=== PATIENT | female | born 1980 | race Caucasian/White ===

== ENCOUNTER 2017-11-11 13:38 | Emergency (ER) | payer OTHER ==
[~2017-11-11] VITALS: Ht 152.4 cm; Wt 103.0 kg
[~2017-11-11 13:38] MED LIST: CALA120T PO; DEPO40IN IM; SERT50 PO
[2017-11-11 13:40] VITALS: BP 147/74; PULSE 82; RESP 18; TEMP 98.7; O2SAT 98
[2017-11-11] MEDS ORDERED: KETOROLAC TROMETHAMINE 30 MG/ML (IVP) VIAL IV PUSH ONE (14:15)
[2017-11-11] MEDS ORDERED: IBUP1TAB7 PO (14:18)
[2017-11-11] MEDS ORDERED: LORA1TAB12 PO (14:18)
[2017-11-11] MEDS ORDERED: SERT-129 PO (14:18)
[2017-11-11] MEDS ORDERED: TRAM50TA PO (14:18)
[2017-11-11] MEDS ORDERED: AMLO10TA2 PO (14:18)
[2017-11-11] MEDS ORDERED: NORT0.5T2 PO (14:18)
--- NOTE | 2017-11-11 14:42 | PD ---
HPI Chief Complaint: Epidemiology Internship Problem/Complaint Time Seen by Provider: 13:58 Travel History International Travel<30 days: No Contact w/Intl Traveler<30days: No Traveled to known affect area: No History of Present Illness HPI This is a 36-year-old female who has a history of polycystic ovarian syndrome who presents to the emergency department with 3 days of increasing right pelvic pain, constant, sharp, worse with walking, improved with rest. She says she has had pain like this for months and has had MRI, CT and ultrasound but she says this pain is much worse and it never used to bother her when she was walking. She has an [facility] appointment scheduled but not until December. She is on her menstrual cycle and has had a normal amount of flow. She denies any fevers or chills and denies any diarrhea. PFSH Past Medical History Depression: Yes Cancer: No Diabetes: No Diminished Hearing: No Hiatal Hernia: No Hypertension: Yes Migraines: Yes Thyroid Disease: No Influenza Vaccination: Yes ?: Not LMP: 3 DAYS AGO Past Surgical History Abdominal Surgery: No Cardiac Surgery: No Ear Surgery: No Eye Surgery: No Genitourinary Surgery: No Gynecologic Surgery: No Oral Surgery: No Pacemaker: No Thoracic Surgery: No Other Surgery: Yes Social History Alcohol Use: No Tobacco Use: No Allergies-Medications (Allergen,Severity, Reaction): Coded Allergies: erythromycin base (Unverified Adverse Reaction, Intermediate, NAUSEA/ DIARRHEA, 11/11/17) aspirin (Unverified Adverse Reaction, Mild, UPSET STOMACH, 11/11/17) Reported Meds & Prescriptions Reported Meds & Active Scripts Active Reported Amlodipine (Amlodipine Besylate) 10 Mg Tab 10 Mg PO DAILY Lorazepam 1 Mg Tab 1 Mg PO HS PRN Sertraline (Sertraline HCl) 100 Mg Tab 150 Mg PO HS Ibuprofen 800 Mg Tab 800 Mg PO NOON PRN Tramadol (Tramadol HCl) 50 Mg Tab 50 Mg PO BID PRN Nortrel 0.5/35 (Norethindrone-Ethinyl Estradiol) 0.5-35 Mg-Mcg Tab 1 Tab PO DAILY Review of Systems Except as stated in HPI: all other systems reviewed are Neg Physical Exam Narrative GENERAL:Well appearing, no acute distress, comfortable appearing. SKIN: Focused skin assessment warm and dry. HEAD: Atraumatic. Normocephalic. EYES: Pupils equal and round. No injection or drainage. ENT: Moist mucous membranes NECK: Trachea midline. CARDIOVASCULAR: Regular rate and rhythm. No murmur appreciated. RESPIRATORY: Clear to auscultation. Breath sounds equal bilaterally. GASTROINTESTINAL: Abdomen soft, tender to palpation in the lower right pelvis with no rebound or guarding. : Tender to palpation immediately over the right ovary. MUSCULOSKELETAL: No obvious deformities. NEUROLOGICAL: Awake and alert. No obvious cranial nerve deficits. Moving all extremities. PSYCHIATRIC: Appropriate mood and affect; insight and judgment normal. Data Data Last Documented VS Vital Signs Date Time Temp Pulse Resp B/P (MAP) Pulse Ox O2 Delivery O2 Flow Rate FiO2 11/11/17 16:53 72 20 109/89 (96) 98 Room Air 11/11/17 13:40 98.7 Orders Orders Complete Blood Count With Diff (11/11/17 14:15) Comprehensive Metabolic Panel (11/11/17 14:15) ^ Insert Iv (11/11/17 14:15) Ed Urine Pregnancytest Poc (11/11/17 14:15) Ketorolac Inj (Toradol Inj) (11/11/17 14:15) Us Pelvis Comp Epidemiology Internship/Non-Preg (11/11/17 ) Labs Laboratory Tests Test 11/11/17 14:40 White Blood Count 5.7 TH/MM3 Red Blood Count 4.18 MIL/MM3 Hemoglobin 12.0 GM/DL Hematocrit 36.2 % Mean Corpuscular Volume 86.5 FL Mean Corpuscular Hemoglobin 28.6 PG Mean Corpuscular Hemoglobin Concent 33.1 % Red Cell Distribution Width 11.8 % Platelet Count 359 TH/MM3 Mean Platelet Volume 6.6 FL Neutrophils (%) (Auto) 57.6 % Lymphocytes (%) (Auto) 33.1 % Monocytes (%) (Auto) 5.8 % Eosinophils (%) (Auto) 2.8 % Basophils (%) (Auto) 0.7 % Neutrophils # (Auto) 3.3 TH/MM3 Lymphocytes # (Auto) 1.9 TH/MM3 Monocytes # (Auto) 0.3 TH/MM3 Eosinophils # (Auto) 0.2 TH/MM3 Basophils # (Auto) 0.0 TH/MM3 CBC Comment DIFF FINAL Differential Comment Blood Urea Nitrogen 10 MG/DL Creatinine 0.49 MG/DL Random Glucose 84 MG/DL Total Protein 7.1 GM/DL Albumin 3.7 GM/DL Calcium Level 8.3 MG/DL Alkaline Phosphatase 46 U/L Aspartate Amino Transf (AST/SGOT) 14 U/L Alanine Aminotransferase (ALT/SGPT) 28 U/L Total Bilirubin 0.2 MG/DL Sodium Level 137 MEQ/L Potassium Level 3.8 MEQ/L Chloride Level 103 MEQ/L Carbon Dioxide Level 27.6 MEQ/L Anion Gap 6 MEQ/L Estimat Glomerular Filtration Rate 143 ML/MIN MDM Medical Decision Making Medical Screen Exam Complete: Yes Emergency Medical Condition: Yes Interpretation(s) Afebrile, no tachycardia, mild hypertension No leukocytosis Electrolytes are reassuring [id number] is negative 17 mm simple cyst involving the right ovary on ultrasound Differential Diagnosis Menorrhagia, ovarian cyst rupture, ovarian torsion, pelvic inflammatory disease , endometriosis Narrative Course This is a 36-year-old female who presents to the emergency department with right pelvic pain in the setting of her menstrual cycle. She is very well- appearing on exam with reassuring blood work. She has no vomiting or fever to suggest appendicitis and she has a normal white blood cell count. Pelvic exam demonstrates dark blood in the vault and some tenderness over the right adnexa. Ultrasound demonstrates a 17 mm simple cyst involving the right ovary. I suspect her pain is related to ovarian cysts. I do not suspect a surgical etiology of her symptoms given her well appearance. I think she can follow-up as an outpatient with an [facility]. Diagnosis Primary Impression: Ovarian cyst Qualified Codes: N83.201 - Unspecified ovarian cyst, right side Patient Instructions: General Instructions Additional Instructions: If you develop severe or worsening abdominal pain, fever>100.4, persistent vomiting or inability to eat or drink return to the emergency department immediately. 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 Med/Other Pt SpecificInfo: Prescription(s) given Scripts Naproxen (Naproxen) 500 Mg Tab 500 MG PO BID Y for PAIN SCALE 4 TO 10, #20 TAB 0 Refills Prov: Jocelyn Wayne MD 11/11/17 Disposition: 01 DISCHARGE HOME Condition: Stable Jocelyn Wayne MD Nov 11, 2017 14:42
[2017-11-11 14:53] LABS: AUTOMATED NEUTROPHIL # 3.3 TH/MM3 (1.8-7.7); BASOPHIL % 0.7 % (0.0-2.0); EOSINOPHIL # 0.2 TH/MM3 (0-0.4); EOSINOPHIL % 2.8 % (0.0-4.0); HEMATOCRIT 36.2 % (35.0-46.0); LYMPH % 33.1 % (9.0-44.0); LYMPHOCYTE # 1.9 TH/MM3 (1.0-4.8); MEAN CELL VOLUME 86.5 FL (80.0-100.0); MEAN CORPUSCULAR HEMOGLOBIN 28.6 PG (27.0-34.0); MEAN CORPUSCULAR HGB CONC 33.1 % (32.0-36.0); MEAN PLATELET VOLUME 6.6 FL (7.0-11.0); MONO % 5.8 % (0.0-8.0); MONOCYTE # 0.3 TH/MM3 (0-0.9); NEUT % 57.6 % (16.0-70.0); PLATELET COUNT 359 TH/MM3 (150-450); RED BLOOD COUNT 4.18 MIL/MM3 (4.00-5.30); RED CELL DISTRIBUTION WIDTH 11.8 % (11.6-17.2); WHITE BLOOD COUNT 5.7 TH/MM3 (4.0-11.0)
[2017-11-11 14:59] LABS: CHLORIDE 103 MEQ/L (98-107); SODIUM (NA) 137 MEQ/L (136-145)
[2017-11-11 15:02] LABS: CALCIUM 8.3 MG/DL (8.5-10.1)
[2017-11-11 15:03] LABS: ALBUMIN 3.7 GM/DL (3.4-5.0); BICARBONATE 27.6 MEQ/L (21.0-32.0); BLOOD UREA NITROGEN 10 MG/DL (7-18); GLUCOSE,RANDOM 84 MG/DL (74-106)
[2017-11-11 15:06] LABS: ALT (GPT) 28 U/L (10-53); AST (GOT) 14 U/L (15-37); CREATININE 0.49 MG/DL (0.50-1.00); GLOMERULAR FILTRATION RATE 143 ML/MIN (>89)
[2017-11-11 15:07] LABS: TOTAL BILIRUBIN ADULT 0.2 MG/DL (0.2-1.0); TOTAL PROTEIN 7.1 GM/DL (6.4-8.2)
[2017-11-11 15:09] LABS: ALKALINE PHOSPHATASE 46 U/L (45-117)
[2017-11-11 16:53] VITALS: BP 109/89; PULSE 72; RESP 20; O2SAT 98
--- NOTE | 2017-11-11 17:57 | RADRPT ---
EXAM DATE/TIME: 11/11/2017 16:58 [facility] COMPARISON: No previous studies available for comparison. INDICATIONS : Pelvic pain. MEDICAL HISTORY : Hypertension. Migraines. Depression. Polycystic ovarian disease. SURGICAL HISTORY : Right carpel tunnel release. ENCOUNTER: Initial ACUITY: 4-6 days PAIN SCORE: 6/10 LOCATION: Bilateral pelvis MEASUREMENTS: UTERUS: 6.9 x 4.0 x 2.7 cm ENDOMETRIAL STRIPE: 6 mm RIGHT OVARY: 4.0 x 4.5 x 2.9 cm LEFT OVARY: 3.4 x 3.3 x 3.5 cm FINDINGS: UTERUS: The myometrium has homogeneous echotexture without mass. RIGHT OVARY: Several small cysts are seen involving the right ovary. There is a dominant 17 mm cyst. The cysts are simple in appearance. The ovary is otherwise unremarkable. LEFT OVARY: Ovary contains no mass or significant cystic lesion. MISCELLANEOUS: No free fluid. CONCLUSION: 1. 17 mm simple cyst involving the right ovary. Otherwise, unremarkable exam. Yobany Muhammad Jr., MD on November 11, 2017 at 17:52 Board Certified Radiologist. This report was verified electronically.
[2017-11-11] MEDS ORDERED: NAPR500T2 PO (18:03)
== END 2017-11-11 18:40 | disposition home or self-care (01) ==
LOC: PHED 13:38
DX: N83.201 Unspecified ovarian cyst, right side (principal); I10 Essential (primary) hypertension; F32.9 Major depressive disorder, single episode, unspecified; Z86.69 Personal history of other diseases of the nervous system and sense organs
CPT/HCPCS: 76856; 80053; 84703; 85025; 96374; 99284; J1885